=== PATIENT | male | born 1955 | race Caucasian/White ===

== ENCOUNTER 2018-07-16 12:54 | Emergency (ER) | payer OTHER ==
[2018-07-16] MEDS ORDERED: DIPH/PERTUSS(ACELL)/TETANUS VAC/PF 0.5 ML SYR (>=10YO) IM ONE (13:10)
[2018-07-16] MEDS ORDERED: IBUPROFEN 400 MG TABLET PO ONE (13:11)
--- NOTE | 2018-07-16 13:14 | ER Document Report ---
ED Medical Screen (RME) - General Chief Complaint: Finger Injury Stated Complaint: FINGER INJURY Time Seen by Provider: 07/16/18 13:06 Primary Care Provider: ANGELICA GREENE PA-C [Primary Care Provider] - Follow up as needed Mode of Arrival: Ambulatory Information source: Patient - Because that Notes: 62-year-old male presented to ED for complaint of pain and laceration to the fourth of this finger on the left hand. He states he was using a shovel to put in a fence post that was metal and cut himself on the metal fence post. He states his tetanus was not up-to-date so it was ordered today. He is also given 400 mg of Advil because he had already taken 200. He states the only blood thinner he is on his aspirin. He is alert oriented respirations regular and unlabored speaking in full sentences walks with even steady gait. He does need his lacerations closed. I have greeted and performed a rapid initial assessment of this patient. A comprehensive ED assessment and evaluation of the patient, analysis of test results and completion of medical decision making process will be conducted by an additional ED providers. Dictation of this chart was performed using voice recognition software; therefore, there may be some unintended grammatical errors. TRAVEL OUTSIDE OF THE [place] IN LAST 30 DAYS: No - Related Data Allergies/Adverse Reactions: No Known Allergies Allergy (Verified 07/16/18 13:00) Past Medical History - Past Medical History Cardiac Medical History: Reports: Hx Hypercholesterolemia, Hx Hypertension Pulmonary Medical History: Reports: Hx COPD Renal/ Medical History: Denies: Hx Peritoneal Dialysis Past Surgical History: Reports: Hx Abdominal Surgery, Hx Orthopedic Surgery - bilateral knee,left shoulder Physical Exam - Vital signs Vitals: Temp Pulse Resp BP Pulse Ox 97.8 F 70 18 151/78 H 95 07/16/18 12:58 07/16/18 12:58 07/16/18 12:58 07/16/18 12:58 07/16/18 12:58 Course - Vital Signs Vital signs: Temp Pulse Resp BP Pulse Ox 97.8 F 70 18 151/78 H 95 07/16/18 12:58 07/16/18 12:58 07/16/18 12:58 07/16/18 12:58 07/16/18 12:58 Doctor's Discharge - Discharge Referrals: ANGELICA GREENE PA-C [Primary Care Provider] - Follow up as needed
--- NOTE | 2018-07-16 14:00 | RADIOLOGY REPORT (SQ) ---
EXAM DESCRIPTION: HAND LEFT 3 VIEWS COMPLETED DATE/TIME: 07/16/2018 1:47 pm REASON FOR STUDY: possible foreign body 4th and 5th finger COMPARISON: None. EXAM PARAMETERS: NUMBER OF VIEWS: Three views. TECHNIQUE: AP, lateral and oblique radiographic images acquired of the left hand. LIMITATIONS: None. FINDINGS: MINERALIZATION: Normal. BONES: There is a comminuted fracture of the left 5th distal phalanx. JOINTS: No effusions. SOFT TISSUES: Soft tissue deformity noted dorsal to the left 5th and left 4th distal phalanx. OTHER: No other significant finding. IMPRESSION: Comminuted fracture left 5th distal phalanx. Soft tissue deformity at left 4th and 5th distal phalanx. TECHNICAL DOCUMENTATION: JOB ID: [id number] 2010 [employer]- All Rights Reserved Reading location - IP/workstation name: [email or web address]
[2018-07-16] MEDS ORDERED: LIDOCAINE 1% INJ-PF (10 MG/ML) 30 ML SDV INJ ONE (14:32)
[2018-07-16] MEDS ORDERED: OXYCODONE-ACETAMINOPHEN 5-325 MG TABLET PO ONE (14:32)
[2018-07-16] MEDS ORDERED: BUPIVACAINE HCL 0.5 % INJ/PF 30 ML SDV INJ ONE (14:33)
--- NOTE | 2018-07-16 14:40 | ER Document Report ---
ED General - General Chief Complaint: Finger Injury Stated Complaint: FINGER INJURY Time Seen by Provider: 07/16/18 13:06 Primary Care Provider: ANGELICA GREENE PA-C [NO LOCAL MD] - Follow up as needed LARRY SCHREIBER MD [ACTIVE STAFF] - Follow up as needed Mode of Arrival: Ambulatory TRAVEL OUTSIDE OF THE [place] IN LAST 30 DAYS: No - HPI Patient complains to provider of: Finger injury Notes: Patient coming in for evaluation left hand injury to the fifth and fourth digit. Patient states he was digging a hole when post and shovel hit his 5th and 4th digit. pt tetnus was up to date here in the er. pt state most of the pain is in his fifth digit. Patient denies any fever chills nausea by diarrhea. Patient denies any numbness or tingling to the digit. Patient otherwise is resting comfortably upon my evaluation. - Related Data Allergies/Adverse Reactions: No Known Allergies Allergy (Verified 07/16/18 13:00) Past Medical History - General Information source: Patient - Because that - Social History Smoking Status: Former Smoker Family History: Reviewed & Not Pertinent Patient has suicidal ideation: No Patient has homicidal ideation: No - Past Medical History Cardiac Medical History: Reports: Hx Hypercholesterolemia, Hx Hypertension Pulmonary Medical History: Reports: Hx COPD Renal/ Medical History: Denies: Hx Peritoneal Dialysis Past Surgical History: Reports: Hx Abdominal Surgery, Hx Orthopedic Surgery - bilateral knee,left shoulder Review of Systems - Review of Systems Constitutional: No symptoms reported EENT: No symptoms reported Cardiovascular: No symptoms reported Respiratory: No symptoms reported Gastrointestinal: No symptoms reported Genitourinary: No symptoms reported Male Genitourinary: No symptoms reported Musculoskeletal: Other - left hand pain Skin: No symptoms reported Hematologic/Lymphatic: No symptoms reported Neurological/Psychological: No symptoms reported Physical Exam - Vital signs Vitals: Temp Pulse Resp BP Pulse Ox 97.8 F 70 18 151/78 H 95 07/16/18 12:58 07/16/18 12:58 07/16/18 12:58 07/16/18 12:58 07/16/18 12:58 Interpretation: Normal - General General appearance: Appears well, Alert - HEENT Head: Normocephalic, Atraumatic Eyes: Normal Pupils: PERRL - Respiratory Respiratory status: No respiratory distress Chest status: Nontender Breath sounds: Normal Chest palpation: Normal - Cardiovascular Rhythm: Regular Heart sounds: Normal auscultation Murmur: No - Abdominal Inspection: Normal Distension: No distension Bowel sounds: Normal Tenderness: Nontender Organomegaly: No organomegaly - Back Back: Normal, Nontender - Extremities General upper extremity: Normal color, Normal temperature. No: Normal inspection - Right hand is unaffected. Patient with a laceration going across the PIP joint of the fifth digit on the left hand cap refill is intact there is a skin avulsion across the PIP of the fourth digit on the left hand bleeding is controlled. No other injury seen. General lower extremity: Normal inspection, Nontender, Normal color, Normal ROM, Normal temperature, Normal weight bearing. No: Brianne's sign - Neurological Neuro grossly intact: Yes Cognition: Normal Orientation: AAOx4 Prakash Coma Scale Eye Opening: Spontaneous [place] Coma Scale Verbal: Oriented [place] Coma Scale Motor: Obeys Commands Prakash Coma Scale Total: 15 Speech: Normal Motor strength normal: LUE, RUE, LLE, RLE Sensory: Normal - Psychological Associated symptoms: Normal affect, Normal mood - Skin Skin Temperature: Warm Skin Moisture: Dry Skin Color: Normal Course - Re-evaluation Re-evalutation: 07/16/18 14:41 X-ray shows comminuted fracture we will cover the patient with antibiotics. We will have the patient follow-up with his own orthopedic per his request. - Vital Signs Vital signs: Temp Pulse Resp BP Pulse Ox 97.5 F 57 L 18 117/64 97 07/16/18 17:01 07/16/18 17:01 07/16/18 17:01 07/16/18 17:01 07/16/18 17:01 Procedures - Laceration/Wound Repair Left 5th digit Time completed: 16:15 Wound length (cm): 2 Wound's Depth, Shape: Stellate Laceration pre-procedure: Sterile PPE donned, Sterile drapes applied, Shur-Clens applied Anesthetic type: 0.5% Bupivacaine - + lidocaine Volume Anesthetic (mLs): 4 Wound explored: Clean Irrigated w/ Saline (mLs): 500 Wound Debrided: Minimal Wound Repaired With: Sutures Suture Size/Type: 4:0, Prolene Number of Sutures: 6 Layer Closure?: No Post-procedure wound care: Sterile dressing applied, Splint applied Post-procedure NV exam normal: No Complications: No Discharge - Discharge Clinical Impression: open distal 5th digit fracture, 5th digit laceration left, abrasion left 4th digit Condition: Good Disposition: HOME, SELF-CARE Instructions: Cephalexin ([facility]), Laceration Care ([facility]), Open Finger Tuft Fracture ([facility]), Oral Narcotic Medication ([facility]) Additional Instructions: Your evaluation today shows a fracture of your pinky finger with overlying laceration as laceration was sutured shut we will continue with antibiotics to prevent infection I will highly recommend she follow-up with your orthopedic physician or orthopedic physician as listed for further evaluation. Return to the ER immediately if there is signs of infection. Please keep the splint on while you are out in the public he may continue suture care with Neosporin over the sutures. Have your sutures removed and 7 to 10 days Prescriptions: Cephalexin Monohydrate [Keflex 500 mg Capsule] 500 mg PO QID #20 capsule Oxycodone HCl [Roxicodone] 5 mg PO Q6 #12 tablet Referrals: ANGELICA GREENE PA-C [NO LOCAL MD] - Follow up as needed LARRY SCHREIBER MD [ACTIVE STAFF] - Follow up as needed
[2018-07-16] MEDS ORDERED: CEFTRIAXONE INJ 1000 MG VIAL IM ONE (15:31)
[2018-07-16] MEDS ORDERED: LIDOCAINE 1% INJ-PF (10 MG/ML) 30 ML SDV NEB ONE (15:31)
[2018-07-16] MEDS ORDERED: LIDOCAINE 1% INJ (10 MG/ML) 10 ML MDV INJ ONE (16:16)
[2018-07-16 17:02] VITALS: BP 117/64
== END 2018-07-16 17:04 | disposition home or self-care (01) ==
LOC: ER 12:54
PROC: 0HQGXZZ Repair Left Hand Skin, External Approach (ICD-10-PCS; principal; 2018-07-16)
DX: S62.637B Displaced fracture of distal phalanx of left little finger, initial encounter for open fracture (principal); S60.415A Abrasion of left ring finger, initial encounter; M79.645 Pain in left finger(s); W22.8XXA Striking against or struck by other objects, initial encounter; Y93.H2 Activity, gardening and landscaping; Z87.891 Personal history of nicotine dependence; I10 Essential (primary) hypertension; J44.9 Chronic obstructive pulmonary disease, unspecified
CPT/HCPCS: 99283; 96372; 90471; 73130; 90715; 12001; J3490 ×3; J0696